=== PATIENT | male | born 1995 | race Caucasian/White ===

== ENCOUNTER 2017-01-23 10:57 | Emergency (ER) | payer MEDICAID, OTHER ==
[2017-01-23] MEDS ORDERED: Sodium Chloride 0.9% 1,000 ML IV ONE (11:08)
[2017-01-23] MEDS ORDERED: Sodium Chloride 0.9% 10 ML Syringe FLUSH PRN (11:08)
[2017-01-23] MEDS ORDERED: Morphine 4 MG/ML Syringe IVPUSH ONE (11:11)
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
[2017-01-23 11:43] LABS: CHLORIDE,CL 101 mmol/L (98-107); SODIUM,NA 139 mmol/L (136-145)
[2017-01-23] MEDS ORDERED: Meperidine PF 25 MG/ML Syringe IV ONE (13:31)
== END 2017-01-23 13:40 | disposition short-term general hospital (02) ==
LOC: VM.ED 10:57
DX: S73.004A Unspecified dislocation of right hip, initial encounter (principal); V89.2XXA Person injured in unspecified motor-vehicle accident, traffic, initial encounter; Y92.410 Unspecified street and highway as the place of occurrence of the external cause
CPT/HCPCS: 36415; 70450; 72125; 72128; 74177; 80048; 80305; 80349; 81001; 82550; 82553; 85025; 96361; 96374; 96375; 99285; G0480; J2175; J2270; J7030; 99284-GF

== ENCOUNTER 2020-06-21 14:44 | Emergency (ER) | payer MEDICAID, OTHER ==
[2020-06-21 15:08] VITALS: BP 135/80; PULSE 82
--- NOTE | 2020-06-21 15:08 | EDM.PDOC ---
ED HPI GENERAL MEDICAL PROBLEM - General Chief Complaint: Upper Extremity Injury/Pain Stated Complaint: RT ARM TINGLING/NUMBNESS Time Seen by Provider: 06/21/20 15:07 Source of Information: Reports: Patient History Limitations: Reports: No Limitations - History of Present Illness INITIAL COMMENTS - FREE TEXT/NARRATIVE: Patient comes emergency department today from home with complaints of pain to his right arm. This patient for the past 2 weeks has had pain with pronation of his right forearm. He has a burning searing pain at the distal aspect of his right bicep that radiates down his arm and it is intermittent with movement. He denies any recent falls trauma or injury to his arm. He has no paresthesia constantly in his arm only when he does pronation of his forearm or does overt physical actions with his right forearm. He has no loss of coordination. He has not had any symptoms like this before. He has no other complaints. No Covid exposure no Covid symptoms. The symptoms have really developed over the last couple of weeks as he has been holding his child primarily in his right arm. Right Upper Arm Pain Score (Numeric/FACES): 8 - Related Data Allergies Allergy/AdvReac Type Severity Reaction Status Date / Time No Known Allergies Allergy Verified 06/21/20 15:02 Home Meds: Home Meds predniSONE 40 mg PO DAILY #10 tab 06/21/20 [Rx] Past Medical History - Past Health History Medical/Surgical History: Denies Medical/Surgical History Social & Family History - Tobacco Use Tobacco Use Status *Q: Current Every Day Tobacco User Years of Tobacco use: 13 Packs/Tins Daily: 1 Review of Systems - Review of Systems Review Of Systems: Comprehensive ROS is negative, except as noted in HPI. ED EXAM, GENERAL - Physical Exam Exam: See Below Exam Limited By: No Limitations General Appearance: Alert, WD/WN, No Apparent Distress Respiratory/Chest: No Respiratory Distress Cardiovascular: Normal Peripheral Pulses, Regular Rate, Rhythm Peripheral Pulses: 2+: Radial (L), Radial (R) Back Exam: Normal Inspection, Full Range of Motion Extremities: No: Normal Inspection (Of the right upper extremity does not show any overt trauma. He does have some tenderness minimally on the distal aspect of the right bicep. There is no joint effusion of the elbow. He has a negative Phalen's and Tinel's test of the right forearm. I am able to elicit the pain by pronation of the forearm against resistance. Fine and gross motor is appropriate. Rest of the exam is unremarkable.) Course - Vital Signs Last Recorded V/S: Last Vital Signs Temp 98.6 F 06/21/20 14:50 Pulse 82 06/21/20 14:50 Resp 16 06/21/20 14:50 BP 135/80 06/21/20 14:50 Pulse Ox 98 06/21/20 14:50 - Re-Assessments/Exams Free Text/Narrative Re-Assessment/Exam: 06/21/20 This is really the sequelae of some type of distal bicep tendinitis due to over usage and fatigue. We will place him in a sling and symptomatic management we also use some steroids as it is quite uncomfortable to him. Oooe-bis-fqiuobd analgesics as well. If he is not improving he should see physical therapy. He is comfortable with this plan his questions were answered. Departure - Departure Time of Disposition: 15:18 Disposition: Home, Self-Care 01 Clinical Impression: Biceps tendinitis on right - Discharge Information Prescriptions: predniSONE 40 mg PO DAILY #10 tab Instructions: How To Use a Sling, Vaeb-up-Cnnn, Pain Medicine Instructions, Mjrp-[id number], Tendinitis, Pjvu-bh-Hvai, Distal Biceps Tendinitis Referrals: Baron Fernandes MD [Primary Care Provider] - Forms: ED Department Discharge Additional Instructions: Use your sling at home at all times. May take off to shower. COntinue with the Tylenol and or Ibuprofen as needed for pain. Heat or ice to the area which ever is better. Prednisone 40mg daily for the next 5 days. Follow up with Physical therapy in 3-5 days for PT eval and treatment. RX to [facility]. Return to the ED if new or worsening symptoms. Sepsis Event Note (ED) - Evaluation Sepsis Screening Result: No Definite Risk - Focused Exam Vital Signs: Vital Signs Temp Pulse Resp BP Pulse Ox 06/21/20 14:50 98.6 F 82 16 135/80 98
== END 2020-06-21 15:27 | disposition home or self-care (01) ==
LOC: VM.ED 14:44
DX: M75.21 Bicipital tendinitis, right shoulder (principal); F17.210 Nicotine dependence, cigarettes, uncomplicated
CPT/HCPCS: 99283

== ENCOUNTER 2021-06-28 18:56 | Emergency (ER) | payer MEDICAID ==
[2021-06-28] MEDS ORDERED: cefTRIAXone 1 GM Vial IM ONE (19:10)
--- NOTE | 2021-06-28 19:19 | EDM.PDOC ---
ED HPI GENERAL MEDICAL PROBLEM - General Chief Complaint: ENT Problem Stated Complaint: TOOTH PAIN Time Seen by Provider: 06/28/21 19:05 Source of Information: Reports: Patient History Limitations: Reports: No Limitations - History of Present Illness INITIAL COMMENTS - FREE TEXT/NARRATIVE: Department complaint of dental pain. Patient states that he has multiple dental caries throughout the upper and lower portion of his mouth. Patient states that he has not seen a dentist in many years due to financial constraints. Patient states that the dental pain has progressively gotten worse over the course the last week. Patient states that he has increased swelling, redness, heat and cold sensitivity, and swelling in his gum tissue. Patient states he has been taking Tylenol, ibuprofen, and Orajel to help with the pain discomfort. Denies any fevers, nausea, vomiting, or abdominal concerns. Onset: Gradual Duration: Getting Worse Location: Reports: Face Quality: Reports: Ache, Stabbing, Throbbing Severity: Moderate Improves with: Reports: None Worsens with: Reports: None Associated Symptoms: Reports: No Other Symptoms - Related Data Allergies Allergy/AdvReac Type Severity Reaction Status Date / Time No Known Allergies Allergy Verified 06/21/20 15:02 Home Meds: Home Meds predniSONE 40 mg PO DAILY #10 tab 06/21/20 [Rx] Amoxicillin 875 mg PO BID 7 Days #14 tab 06/28/21 [Rx] Past Medical History - Past Health History Medical/Surgical History: Denies Medical/Surgical History ED ROS GENERAL - Review of Systems Review Of Systems: Comprehensive ROS is negative, except as noted in HPI. Constitutional: Reports: No Symptoms HEENT: Reports: No Symptoms Respiratory: Reports: No Symptoms Cardiovascular: Reports: No Symptoms Endocrine: Reports: No Symptoms GI/Abdominal: Reports: No Symptoms : Reports: No Symptoms Musculoskeletal: Reports: No Symptoms Skin: Reports: No Symptoms Neurological: Reports: No Symptoms Psychiatric: Reports: No Symptoms Hematologic/Lymphatic: Reports: No Symptoms Immunologic: Reports: No Symptoms ED EXAM, GENERAL - Physical Exam Exam: See Below Exam Limited By: No Limitations General Appearance: Alert, WD/WN, No Apparent Distress Eye Exam: Bilateral Eye: EOMI, PERRL Throat/Mouth: Other (multiple dental caries noted throughout mouth. mild tissue swelling on upper gum line. no bleeding, bruising, fractured teet or drainage noted) Head: Atraumatic, Normocephalic Neck: Normal Inspection, Supple, Non-Tender, Full Range of Motion Respiratory/Chest: No Respiratory Distress, No Accessory Muscle Use, Chest Non- Tender Cardiovascular: Normal Peripheral Pulses, Regular Rate, Rhythm Neurological: Alert, Oriented, Normal Gait Psychiatric: Normal Affect, Normal Mood Skin Exam: Warm, Dry, Intact Course - Orders/Labs/Meds Meds: Medications Discontinued Medications Generic Name Dose Route Start Last Admin Trade Name Freq PRN Reason Stop Dose Admin Ceftriaxone Sodium 1 gm 06/28/21 19:10 Ceftriaxone 1 Gm Vial IM 06/28/21 19:11 ONETIME ONE Departure - Departure Time of Disposition: 19:15 Disposition: Home, Self-Care 01 Condition: Good Clinical Impression: Infected dental caries - Discharge Information *PRESCRIPTION DRUG MONITORING PROGRAM REVIEWED*: Not Applicable *COPY OF PRESCRIPTION DRUG MONITORING REPORT IN PATIENT JAVID: Not Applicable Prescriptions: Amoxicillin 875 mg PO BID 7 Days #14 tab Instructions: Dental Caries, Adult, Amoxicillin capsules or tablets Referrals: Faby Kirkland PA-C [Primary Care Provider] - Care Plan Goals: 1. rest 2. increase your water intake 3. Take all antibiotics as prescribed even if feeling better 4. Take a probiotic while on antibiotics to help promote healthy GI motility 5. Activity and diet as tolerated 6. Can use Ibuprofen and tylenol for any fever or discomfort 7. Follow up with your PCP or return if symptoms progress or worsen 8. Education provided to you regarding your illness, probiotics, antibiotic prescribed 9. Call with any questions or concerns - Assessment/Plan Assessment:: 1. dental caries Plan: 1. Rocephin IM given in the ER 2. Amoxicillin script sent with the patient 3. Patient and nursing staff was updated regarding the plan of care 4. Education provided the patient regarding activity, diet, rest, [id number] medication modalities, and follow-up care was provided 5. Patient and family are agreeable to the above plan of care 6. All questions and concerns were addressed with the patient and family prior to discharge
== END 2021-06-28 19:30 | disposition home or self-care (01) ==
LOC: VM.ED 18:56
DX: K04.7 Periapical abscess without sinus (principal); K02.9 Dental caries, unspecified
CPT/HCPCS: 96372; 99283; J0696

== ENCOUNTER 2021-07-07 18:59 | Emergency (ER) | payer SELFPAY ==
[2021-07-07 19:06] VITALS: BP 166/85; PULSE 86
[2021-07-07] MEDS ORDERED: Bupivacaine 0.5% 30 ML SDV INJECT PRN (19:14)
[2021-07-07] MEDS ORDERED: Take Home: Acetaminophen/HYDROcodone 325-5 MG, 5 Tab Pack PO ONE (19:18)
--- NOTE | 2021-07-07 19:32 | EDM.PDOC ---
ED HPI GENERAL MEDICAL PROBLEM - General Chief Complaint: General Stated Complaint: Tooth Pain Time Seen by Provider: 07/07/21 19:09 Source of Information: Reports: Patient - History of Present Illness INITIAL COMMENTS - FREE TEXT/NARRATIVE: Ginny is a 26 y/o male who comes to the ER with dental pain. He was seen on in the ER in placed on antibiotics. He has a dental appt pn Friday, but the pain has gotten so much worse today and his right cheek region is slightly swollen. No fever. Oral/Mouth Pain Score (Numeric/FACES): 10 - Related Data Allergies Allergy/AdvReac Type Severity Reaction Status Date / Time No Known Allergies Allergy Verified 06/21/20 15:02 Home Meds: Home Meds predniSONE 40 mg PO DAILY #10 tab 06/21/20 [Rx] Amoxicillin 875 mg PO BID 7 Days #14 tab 06/28/21 [Rx] Past Medical History - Past Health History Medical/Surgical History: Denies Medical/Surgical History Social & Family History - Tobacco Use Tobacco Use Status *Q: Current Every Day Tobacco User Years of Tobacco use: 2 Packs/Tins Daily: 14 - Recreational Drug Use Recreational Drug Use: Yes Recreational Drug Type: Reports: Marijuana/Hashish Recreational Drug Use Frequency: Daily ED ROS GENERAL - Review of Systems Review Of Systems: See Below Constitutional: Reports: No Symptoms HEENT: Reports: Dental Pain Respiratory: Reports: No Symptoms Cardiovascular: Reports: No Symptoms Endocrine: Reports: No Symptoms GI/Abdominal: Reports: No Symptoms : Reports: No Symptoms Musculoskeletal: Reports: No Symptoms Skin: Reports: No Symptoms Neurological: Reports: No Symptoms Psychiatric: Reports: No Symptoms Hematologic/Lymphatic: Reports: No Symptoms Immunologic: Reports: No Symptoms ED EXAM, GENERAL - Physical Exam Exam: See Below General Appearance: Alert, WD/WN, No Apparent Distress (Appears to be in pain) Ears: Hearing Grossly Normal Nose: Normal Inspection Throat/Mouth: Normal Lips, Normal Voice, Other (Note mild swelling to right lower jaw. Several teeth appear to have been filled, Tooth #30 is tender to touch.) Head: Atraumatic, Normocephalic Neck: Supple Respiratory/Chest: No Respiratory Distress GI/Abdominal: Soft (Male) Exam: Deferred Extremities: No Pedal Edema, Normal Capillary Refill Neurological: Alert, Oriented, CN II-XII Intact, Normal Cognition Skin Exam: Warm, Dry, Intact, Normal Color Course - Vital Signs Text/Narrative:: 1908 The patient was seen by the [employer] [facility]. A dental block was done. See Procedure Note. PROCEDURE NOTE: DENTAL BLOCK Consent for operation or procedure: Risks and benefits discussed with patient and consent obtained. Risks include facial paralysis, hematoma, and trismus (spasm of the jaw muscle. Benefits include pain control. Bupivacaine 0.5%-2ml The distribution of the inferior alveolar nerve was identified. Bupivacaine was injected into that region. A short time later adequate analgesia was obtained. Estimated Blood Loss: minimal Complications: The patient tolerated the procedure well without complications. Patient advised to stay on current abx and wait for dental appt on Friday. Written instructions were given and he left the ER in stable condition. Last Recorded V/S: Last Vital Signs Temp 36.6 C 07/07/21 19:03 Pulse 86 07/07/21 19:03 Resp 16 07/07/21 19:03 BP 166/85 H 07/07/21 19:03 Pulse Ox 98 07/07/21 19:03 - Orders/Labs/Meds Orders: Active Orders 24 hr Category Date Time Status Bupivacaine 0.5% [Marcaine 0.5%] Med 07/07/21 19:14 Ordered 30 ml INJECT ASDIRECTED PRN Medication Orders Bupivacaine HCl (Bupivacaine 0.5% 30 Ml Sdv) 30 ml INJECT ASDIRECTED PRN PRN Reason: Other Meds: Medications Generic Name Dose Route Start Last Admin Trade Name Freq PRN Reason Stop Dose Admin Bupivacaine HCl 30 ml 07/07/21 19:14 Bupivacaine 0.5% 30 Ml Sdv INJECT ASDIRECTED PRN Other Departure - Departure Time of Disposition: 19:41 Disposition: Home, Self-Care 01 Condition: Good Clinical Impression: Pain, dental - Discharge Information Instructions: Dental Pain Additional Instructions: -Continue current Amoxicillin as prescribed -Ibuprofen 400mg oral every 6 hours as needed for pain -Hydrocodone/Acetaminophen 5-325mg 1-2 tablets oral every 4-6 hours as needed for pain #10(ER Rx) -Apply ice or heat to your cheek region for comfort -Eat soft foods that aren't extremely hot or cold -Keep your dental appt Friday -Return to the ER if you have any further concerns Sepsis Event Note (ED) - Evaluation Sepsis Screening Result: No Definite Risk - Focused Exam Vital Signs: Vital Signs Temp Pulse Resp BP Pulse Ox 07/07/21 19:03 36.6 C 86 16 166/85 H 98 - My Orders Last 24 Hours: My Active Orders 07/07/21 19:14 Bupivacaine 0.5% [Marcaine 0.5%] 30 ml INJECT ASDIRECTED PRN - Assessment/Plan Last 24 Hours: My Active Orders 07/07/21 19:14 Bupivacaine 0.5% [Marcaine 0.5%] 30 ml INJECT ASDIRECTED PRN
== END 2021-07-07 19:58 | disposition home or self-care (01) ==
LOC: VM.ED 18:59
DX: K08.89 Other specified disorders of teeth and supporting structures (principal); Z72.0 Tobacco use
CPT/HCPCS: 64400; 99282-25; 99283; A9270-GY; J3490